=== PATIENT | female | born 1975 | race Caucasian/White ===

== ENCOUNTER 2018-10-28 15:38 | Emergency (ER) | payer OTHER ==
[~2018-10-28] VITALS: Ht 162.6 cm; Wt 65.3 kg
[2018-10-28 15:50] VITALS: Ht 162.6 cm; Wt 65.3 kg
[2018-10-28 17:01] VITALS: BP 124/83
== END 2018-10-28 17:01 | disposition home or self-care (01) ==
LOC: ED 15:38
DX: L60.0 Ingrowing nail (principal)